=== PATIENT | female | born 1985 | race Caucasian/White ===

== ENCOUNTER 2019-11-04 13:00 | Outpatient (RCR) | payer OTHER, SELFPAY ==
--- NOTE | 2019-08-09 17:30 | PTOPEVAL ---
PHYSICAL THERAPY EVALUATION AND PLAN OF CARE Thank you for referring this patient to [facility]. Nikki will be seen 2x/week for 4 weeks in aquatic physical therapy. Please review, sign, date and return this plan of care PORTIA. I agree with and certify that the following plan of care is medically necessary. Referring Physician Date Attending Provider: Gwendolyn Méndez, PA Evaluation Outpatient Past Medical History Genitourinary History Hx Kidney Stones Yes Hx Renal Disease Yes Hx Other Genitourinary Disorders Yes: urostomy; history of iliostomy and colostomy Musculoskeletal History Hx Other Musculoskeletal Disorders Yes: OA Other History Hx Cancer Yes: cervical and uterine Hx Chemotherapy Yes Evaluation Information Problem Diagnosis right hip pain, septic hip arthritis Onset 03/2019 Subjective Information right hip pain started in Query Text:As Reported By Patient/ March 2019 that kept Family worsening. She went to the ER that resulted in right hip septric arthritis. She had surgery to clean up the hip. A follow-up aspiration was clean. She continues to have right hip pain with muscle spasms and sciatic pain. States that if anything touches her the back of her right ankle there is an electrical feeling that goes up and down her leg. Pain Scale Right Hip(s) Reported Pain Level 5 Pain Description Sharp Pain Frequency Chronic,Continuous Other Pain Description sometimes feels like a justin is being shoved up my hip Pain Score 5: Self Report Additional Pain Score Comments describes a lot of pain in middle of glutes and points to area of piriformis Hip Range of Motion Right Reason Not Measured WNL/Left Hip Flexion Range of Motion - Active 80 Hip Flexion Range of Motion - Passive 92 Hip Extension Range of Motion - Passive -30 Hip Abduction Range of Motion - Passive 15 Hip Medial Rotation - Passive 12 Hip Lateral Rotation - Passive 5 Hip Range of Motion Comments lacking 30degrees extension right hip Knee Range of Motion Right Reason Not Measured WNL/Left,WNL/Right Hip Strength Right Reason Not Measured WNL/Left Hip Flexion Strength
--- NOTE | 2019-09-01 12:26 | PCPTNOTE ---
Patient called & cancelled scheduled appointment this date due to weather
--- NOTE | 2019-09-29 18:00 | PCPTNOTE ---
Patient called & cancelled scheduled appointment this date due to hospital admission. Will call patient to determine future therapy needs.
--- NOTE | 2019-10-11 10:10 | PCPTNOTE ---
Patient called & cancelled scheduled appointment this date due to self-quarantine due to having an impaired immune system. She is re-scheduled for 10/27/2019.
--- NOTE | 2019-11-04 14:01 | PTOPEVAL ---
PHYSICAL THERAPY PLAN OF CARE UPDATE AND PROGRESS REPORT Thank you for referring Nikki Cho to [facility]. I recommend iNkki continue physical therapy 1x/week on land and 1x/week in aquatic environment for 4 weeks. Please review, sign, date and return this plan of care PORTIA. I agree with and certify that the following plan of care is medically necessary. Referring Physician Date Attending Provider: Gwendolyn Méndez, PA Re-evaluation Outpatient Past Medical History Genitourinary History Hx Kidney Stones Yes Hx Renal Disease Yes Hx Other Genitourinary Disorders Yes: urostomy; history of iliostomy and colostomy Musculoskeletal History Hx Other Musculoskeletal Disorders Yes: OA Other History Hx Cancer Yes: cervical and uterine Hx Chemotherapy Yes Diagnosis right hip pain, septic hip arthritis; necrosis of right femoral head Onset 03/2019 Subjective Information reports that she feels Query Text:As Reported By Patient/ stronger and moves a bit Family faster, but she feels she experiences a lot of popping and crunching in the hip. She uses loftstrand crutches. Reports that she is more sore today because she has been helping with her boys and spending time outside with them. Pain Assessment Timing of Pain Assessment Timing of Pain Assessment Assessment Pain Scale Pain Scale Used Numeric (1 - 10) Self Report Pain Assessment Right Hip(s) Reported Pain Level 6 Pain Description Tightness Pain Frequency Chronic,Continuous Other Pain Description crunching Lowest Pain Intensity 4 Greatest Pain Intensity 7 Pain Aggravating Factors Walking,Weight Bearing/ Standing Interventions Used By Clinicians Aquatic Therapy,Exercise Pain Score Pain Score 6: Self Report Additional Pain Score Comments describes a lot of pain in middle of glutes and points to area of piriformis Lower Extremity Range of Motion Hip Range of Motion Right Reason Not Measured WNL/Left Hip Flexion Range of Motion - Active 70 Hip Flexion Range of Motion - Passive 85 Hip Extension Range of Motion - Passive 7 Hip Abduction Range of Motion - Passive 20 Hip Medial Rotation - Passive 5 Hip Lateral Rotation - Passive 5 Knee Range of Motion Right Reason Not Measured WNL/Left,WNL/Right Lower Extremity Muscle Strength Testing Hip Strength Rig
--- NOTE | 2019-11-08 13:13 | PCPTNOTE ---
This treatment is being continued on visit number [id number]. Please see documentation on both accounts to view progress. Completed interventions, outcomes, and problems have been marked as Inactive to facilitate the copying of the Care plan routine for recurring accounts.
== END 2019-11-07 23:59 | disposition home or self-care (01) ==
LOC: ANHPT 13:00
PROVIDERS: PCP Physician Assistant; Visit Provider Physician Assistant
DX: M25.559 Pain in unspecified hip (principal)
CPT/HCPCS: 97110; 97113; 97140; 97162

== ENCOUNTER 2020-01-19 12:30 | Outpatient (RCR) | payer OTHER, SELFPAY ==
--- NOTE | 2019-11-08 13:13 | PCPTNOTE ---
The treatment documented on this account is a continuation of the treatment documented on visit number [id number]. Please see documentation on both accounts to view progress. The Plan of Care has been transitioned and updated within the new V#. I have addressed and agree with the discipline specific Problems, Interventions, and Goals for the current certification period. Completed interventions, outcomes, and problems have been marked as Inactive to facilitate the copying of the Care plan routine for recurring accounts.
--- NOTE | 2019-11-29 14:23 | PTOPEVAL ---
Thank you for referring Nikki Cho to [facility]. Please review, sign, date and return this plan of care PORTIA. I agree with and certify that the following plan of care is medically necessary. Referring Physician Date Attending Provider: Gwendolyn Méndez, PA Re-evaluation Outpatient Past Medical History Genitourinary History Hx Kidney Stones Yes Hx Renal Disease Yes Hx Other Genitourinary Disorders Yes: urostomy; history of iliostomy and colostomy Musculoskeletal History Hx Other Musculoskeletal Disorders Yes: OA Other History Hx Cancer Yes: cervical and uterine Hx Chemotherapy Yes Diagnosis right hip pain; avascular necrosis with arthritis Subjective Information Nikki had a doctor's Query Text:As Reported By Patient/ appointment last week with x- Family rays. There were no significant changes in the condition of the hip except an increase in the severity of the arthritis. She was referred to a different orthopedic doctor to see about possible hip replacement - this appt is in December. Pain Scale Used Numeric (1 - 10) Self Report Pain Assessment Right Hip(s) Reported Pain Level 6 Pain Description Aching,Soreness,With Movement Interventions Used By Clinicians Exercise Pain Score Pain Score 6: Self Report Additional Pain Score Comments a little more sore today because she was out with her kids yesterday in the park and walking in the trail Lower Extremity Range of Motion Hip Range of Motion Right Hip Flexion Range of Motion - Active 70 Hip Extension Range of Motion - Active -10 Hip Range of Motion Comments sitting with posterior pelvic tilt: able to reach 90deg hip flexion Ankle/Foot Range of Motion Right Ankle Dorsiflextion With Knee Extension 2 Range of Motion - Active Ankle Dorsiflextion With Knee Flexed 4 Range of Motion - Active Lower Extremity Muscle Strength Testing Hip Strength Right Hip Flexion Strength 3- Fair - Hip Extension Strength 3+ Fair + Hip Abduction Strength 3 Fair Knee Strength Right Knee Flexion Strength 3+ Fair + Knee Extension Strength 3+ Fair + Knee Strength Comments fair to moderate right quad set - able to achieve with hesitating motor cont
--- NOTE | 2019-12-21 11:48 | PCPTNOTE ---
Patient called & cancelled scheduled appointment this date due to patient's request due to family issue.
--- NOTE | 2019-12-27 15:31 | PTOPEVAL ---
PHYSICAL THERAPY PLAN OF CARE UPDATE AND PROGRESS REPORT Thank you for referring Nikki Cho to [facility]. Nikki continues to demonstrate progress toward her goals. Noted goals are appropriate. I recommend continuing 2x/week for 4 weeks. Please review, sign, date and return this plan of care PORTIA. I agree with and certify that the following plan of care is medically necessary. Referring Physician Date Attending Provider: Gwendolyn Méndez, PA Progress Outpatient Past Medical History Genitourinary History Hx Kidney Stones Yes Hx Renal Disease Yes Hx Other Genitourinary Disorders Yes: urostomy; history of iliostomy and colostomy Musculoskeletal History Hx Other Musculoskeletal Disorders Yes: OA Other History Hx Cancer Yes: cervical and uterine Hx Chemotherapy Yes Evaluation Information Problem Diagnosis right hip pain; avascular necrosis with arthritis Subjective Information No significant changes to Query Text:As Reported By Patient/ report. working hard at home Family to improve gait pattern. Appt with orthopedic dr on 2019. Pain Assessment Timing of Pain Assessment Timing of Pain Assessment Assessment Pain Scale Pain Scale Used Numeric (1 - 10) Self Report Pain Assessment Right Hip(s) Reported Pain Level 4 Pain Description Aching,Soreness Interventions Used By Clinicians Exercise Pain Score Pain Score 4: Self Report Additional Pain Score Comments continues to grind and ache Lower Extremity Range of Motion Hip Range of Motion Right Hip Flexion Range of Motion - Active 50 Hip Extension Range of Motion - Active -10 Hip Range of Motion Comments sitting with posterior pelvic tilt: able to reach 90deg hip flexion Ankle/Foot Range of Motion Right Ankle Dorsiflextion With Knee Extension 3 Range of Motion - Active Lower Extremity Muscle Strength Testing Hip Strength Right Hip Flexion Strength 3- Fair - Hip Extension Strength 3+ Fair + Hip Abduction Strength 3 Fair Knee Strength Right Knee Flexion Strength 4- Good - Knee Extension Strength 3+ Fair + Knee Strength Comments good quad set with good control Ankle Strength Right Ankle Dorsiflexion Strength 3+ Fair + Ankle Eversion Strength 3+ Fair + Ankle Inversion Strength 3+ Fair + Gait Assessment Gait Assessment Ambulation Assistive Devices Crutches, Forearm Weight Bearing Status - Left Full Weight Bearing Status - Right As Tolerated Ambulation Ability Independent Additional Ambulation Comments
--- NOTE | 2020-01-25 16:00 | PCPTNOTE ---
Patient called & cancelled scheduled appointment for 01/25 due to illness. She is having surgery on 01/26 for a brain tumor.
--- NOTE | 2020-01-25 16:00 | PCPTNOTE ---
PHYSICAL THERAPY DISCHARGE NOTE Attending Provider: Gwendolyn Méndez, PARI Patient:Nikki Cho Date of :1985 Nikki has been participating in physical therapy for right hip avascular necrosis and hip pain. She initially started therapy in July 2019. She was recently hospitalized and a brain tumor was discovered. She will be having surgery on 01/27/2020. Nikki is also following up with orthopedic surgeon regarding her hip around 02/08/2020. When she is released to return to therapy, the orthopedic physician will send a new order to [facility]. At this time, we will discharge this account. We will be happy to work with Nikki again in the future. Thank you for referring Nikki to [facility]. Please review, sign, date and return this discharge summary PORTIA. I have been updated about the patient's current status and I agree with discharge from the above service at this time. Referring Physician Date
== END 2020-01-27 08:39 | disposition home or self-care (01) ==
LOC: ANHPT 12:30
PROVIDERS: PCP Physician Assistant; Visit Provider Physician Assistant
DX: M87.859 Other osteonecrosis, unspecified femur (principal)
CPT/HCPCS: 99199; 97110; 97113; 97140

== ENCOUNTER 2020-12-01 14:45 | Outpatient (RCR) | payer OTHER, SELFPAY ==
--- NOTE | 2020-10-05 16:17 | PTOPEVAL ---
PHYSICAL THERAPY EVALUATION Thank you for referring Nikki Cho to [facility][Note 3].? Nikki was evaluated for the dx of right DENISE. The patient is scheduled to be seen for therapy? 2 x/week for 4 weeks. Please review, sign, date and return this plan of care PORTIA. I agree with and certify that the following plan of care is medically necessary. 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 The patient has 2 sons (14 and 15 yrs), does housework, cooking, and has 3 steps with a rail to get into a single level home. 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 Patient is driving restricted until November of 2020. 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 The patient feels the right hip is about 75% normal and still has a limp that she wants to correct. The patient also wants to improve her hip strength. Subjective Information Patient reports some right Query Text:As Reported By Patient/ ankle soreness due to changes Family of movement with hip recovery. Patient is past standard hip precautions for surgery. Previous Treatments Previous Treatments For This Problem therapy in hospital after surgery for hip Pain Assessment Timing of Pain Assessment Timing of Pain Assessment Assessment Pain Scale Pain Scale Used Numeric (1 - 10) Self Report Pain Assessment Right Hip(s) Reported Pain Level 3 Pain Frequency Acute Other Pain Description more pain at end of day from activity Greatest Pain Intensity 5 Pain Aggravating Factors
--- NOTE | 2020-10-11 13:56 | PCPTNOTE ---
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
--- NOTE | 2020-10-31 10:12 | PCPTNOTE ---
Patient called & cancelled scheduled appointment this date due to not feeling well from getting second vaccination yesterday.
--- NOTE | 2020-11-02 11:26 | PCPTNOTE ---
Patient called & cancelled scheduled appointment this date due to still not feeling well after vaccination.
--- NOTE | 2020-11-08 12:57 | PTOPEVAL ---
PHYSICAL THERAPY RE-ASSESSMENT Thank you for referring Nikki Cho to [facility].? Nikki was re-assessed today for the dx of right hip DENISE. The patient is scheduled to be seen for therapy?2 x/week for 4 more weeks. Please review, sign, date and return this plan of care PORTIA. I agree with and certify that the following plan of care is medically necessary. Referring Physician Date Attending Provider: Ayden Booker *PT Outpatient Re-Evaluation Start: 10/05/20 15:06 Freq: Status: Active Protocol: Document 11/08/20 09:26 MLV (Rec: 11/08/20 10:17 MLV [id number]) Therapy Assessment Status Assessment Status Progress Evaluation Information Problem Diagnosis right DENISE 08/11/20 Cause infectious OA Additional Evaluation Detail Pt feels she is getting stronger but is glad to see that today's findings show objective improvements. Pt remains motivated to improve and feels further therapy will get her to a better level of mobility and strength. Pain Assessment Pain Scale Pain Scale Used Numeric (1 - 10) Self Report Pain Assessment Bilateral Ankle(s) Reported Pain Level 3 Right Hip(s) Reported Pain Level 3 Pain Score Pain Score 3,3: Self Report Interventions Used Interventions Used By Clinicians Exercise Pain Relief Interventions Used By Inactivity/Rest Patient Lower Extremity Muscle Strength Testing General Lower Extremity Strength Gross Lower Extremity Strength left hip flexion 3/5 to 3+/5 right hip flexion 3/5 with fatigue at 10 reps, hip abduction 3-/5 to 2+/5, knee extension 4/5 to 4o-/5 with fatigue at 10 reps of resisted motion, knee flexion 4-/5, ankle DF 4-/5 with 15 reps resiste motion fatigue, PF 4-/ 5 with 15 reps fatigue w/ resistance Transfer Assessment Chair Transfer Assessment Chair Transfer Assistive Devices None Ambulation Assistive Devices None Chair Transfer Destination Ambulatory Sit to Stand Chair Transfer Ability Independent Stand to Sit Chair Transfer Ability Independent Ability to Transfer In/Out of Chair Independent Chair Transfer Technique Stand Step Pivot Chair Transfer Comments decreased labored movement and still no loss of balance Balance Assessment 5 Time Sit to Stand Time in Se
--- NOTE | 2020-11-24 15:46 | PCPTNOTE ---
Patient called & cancelled scheduled appointment this date due to something coming up . Will continue per POC.
--- NOTE | 2020-12-04 14:22 | PCPTNOTE ---
Patient called & cancelled scheduled appointment this date due to being in the hospital.
--- NOTE | 2020-12-15 12:47 | PCPTNOTE ---
Addendum entered by Cleo Horner, PT 12/15/20 16:43: Patient returned call-reports cancelling all further appts with last call due to serious medical issues with kidneys. Original Note: Patient did not show up for scheduled appointment this date. Patient was called, no answer, and a message was left with a request to call us back at her convenience.
--- NOTE | 2020-12-15 16:39 | PCPTNOTE ---
PHYSICAL THERAPY DISCHARGE Attending Provider: Ayden Booker Patient:Nikki Cho Date of :1985 Patient has not returned for any further treatments since 12/01/2020 (due to a decline in medical state-kidney related), therefore she will be discharged at this time. Patient?s initial visit was on 10/05/2020 15:00 and she had a total of 12 visits for the dx of hip/LE weakness. The goals have been partially met. Thank you for referring this patient to [facility]. Please review, sign, date and return this discharge summary PORTIA. I have been updated about the patient's current status and I agree with discharge from the above service at this time. Referring Physician Date
== END 2020-12-18 13:25 | disposition home or self-care (01) ==
LOC: ANHPT 14:45
PROVIDERS: PCP Physician Assistant
DX: Z47.1 Aftercare following joint replacement surgery (principal); Z96.641 Presence of right artificial hip joint; M87.851 Other osteonecrosis, right femur
CPT/HCPCS: 97110; 97116; 97162; 97530